=== PATIENT | female | born 1960 | race American Indian/Alaskan Native ===

== ENCOUNTER 2016-07-20 06:44 | Emergency (ER) | payer MEDICARE ==
[2016-07-20 07:21] LABS: Basophils % (Auto) 0.4 % (0.0-1.8); Eosinophils % (Auto) 0.1 % (0.0-4.3); Hematocrit 40.5 % (30.3-42.9); Hemoglobin 12.8 gm/dl (10.1-14.3); Mean Corpuscular HGB Conc 32 % (30-34); Mean Corpuscular Volume 78 fl (79-97); Platelet Count 176 K/mm3 (140-440); Red Blood Count 5.18 M/mm3 (3.65-5.03); Red Cell Distribution Width 15.2 % (13.2-15.2); White Blood Count 5.5 K/mm3 (4.5-11.0)
[2016-07-20 07:54] LABS: Mean Corpuscular Hemoglobin 25 pg (28-32)
[2016-07-20 08:01] LABS: Anion Gap 20 mmol/L; BUN/Creatinine Ratio 16.66; Blood Urea Nitrogen 10 mg/dL (7-17); Calcium 10.9 mg/dL (8.4-10.2); Carbon Dioxide 22 mmol/L (22-30); Chloride 106.9 mmol/L (98-107); Glucose 88 mg/dL (65-100); Potassium 3.7 mmol/L (3.6-5.0); Sodium 145 mmol/L (137-145)
[2016-07-20 08:44] LABS: Urine Drugs of Abuse Note Disclamer
[2016-07-20 08:53] LABS: Bacteria,Urine 1+ /HPF (Negative); Bilirubin,Urine NEG (Negative); Blood,Urine NEG (Negative); Ketones,Urine 20 mg/dL (Negative); Leukocyte Esterase,Urine TR (Negative); Mucus,Urine FEW /HPF; Nitrite,Urine NEG (Negative); Protein,Urine <15 mg/dL mg/dL (Negative); Urobilinogen,Urine < 2.0 mg/dL (<2.0)
--- NOTE | 2016-07-20 11:22 | Emergency Department Report ---
ED Psych HPI - General Chief Complaint: Psych Stated Complaint: BODY PAIN/HIGH BP/MH Time Seen by Provider: 07/20/16 10:46 Source: patient, RN notes reviewed Mode of arrival: Ambulatory Limitations: Altered Mental Status - History of Present Illness Initial Comments: 56-year-old female presents to the emergency department for mental health evaluation. Review of the nursing notes reports that the patient was complaining of generalized body pain. It also notes that the patient was refusing to answer most questions in triage. Prior to being placed in a room, the patient became agitated, requiring the use of security to redirect the patient. Upon being placed in a room, the patient reportedly became catatonic. Patient is refusing to answer questions. MD Complaint: altered mental status -: This morning History of same: Yes Quality: constant Improves With: none Worsens With: none Treatments Prior to Arrival: none - Related Data Home Medications Medication Instructions Recorded Confirmed Last Taken Unobtainable [Unobtainable] 03/01/15 03/01/15 Unknown Allergies Allergy/AdvReac Type Severity Reaction Status Date / Time Penicillins Allergy Unknown Verified 07/20/16 06:58 ED Review of Systems ROS: Stated complaint: BODY PAIN/HIGH BP/MH Other details as noted in HPI Comment: Unobtainable due to pts medical conditions ED Past Medical Hx - Past Medical History Previous Medical History?: Yes Hx Hypertension: Yes Hx Sickle Cell Disease: Yes (sickle cell trait) Hx Psychiatric Treatment: Yes (schizoaffective disorder, bipolar, agressive) Additional medical history: Anemia. hypothyroid. mutism - Surgical History Past Surgical History?: No - Family History Family history: no significant - Social History Smoking Status: Unknown if ever smoked - Medications Home Medications: Home Medications Medication Instructions Recorded Confirmed Last Taken Type Unobtainable [Unobtainable] 03/01/15 03/01/15 Unknown History ED Physical Exam - General Limitations: Physical Limitation General appearance: in no apparent distress - Head Head exam: Present: atraumatic, normocephalic - Eye Eye exam: Present: normal appearance, PERRL, EOMI - ENT ENT exam: Present: normal exam, normal orophraynx, mucous membranes moist - Neck Neck exam: Present: normal inspection, full ROM. Absent: tenderness - Respiratory Respiratory exam: Present: normal lung sounds bilaterally. Absent: respiratory distress - Cardiovascular Cardiovascular Exam: Present: regular rate, normal rhythm, normal heart sounds - GI/Abdominal GI/Abdominal exam: Present: soft, normal bowel sounds. Absent: distended, tenderness - Extremities Exam Extremities exam: Present: normal inspection, full ROM. Absent: tenderness - Back Exam Back exam: Present: normal inspection, full ROM. Absent: tenderness - Neurological Exam Neurological exam: Present: altered (patient opens her eyes to verbal stimuli. When talking to her, patient was looking directly at me in focusing. As questioning continued, the patient changed her focus to the ceiling and then closed her eyes again.) - Psychiatric Psychiatric exam: Present: flat affect - Skin Skin exam: Present: warm, dry, intact ED Course Vital Signs 07/20/16 06:58 Temperature 98.5 F Pulse Rate 80 Respiratory 14 Rate Blood Pressure 154/105 [Right] O2 Sat by Pulse 99 Oximetry ED Medical Decision Making - Lab Data Result diagrams: 07/20/16 07:01 07/20/16 07:01 - Medical Decision Making Form 1013 has been signed and placed on the patient's chart. Patient has been medically cleared and is awaiting mental health evaluation for inpatient placement. - Differential Diagnosis schizoaffective disorder Critical care attestation.: If time is entered above; I have spent that time in minutes in the direct care of this critically ill patient, excluding procedure time. ED Disposition Clinical Impression: Schizoaffective disorder, bipolar type Disposition: DC/TX PSY HOSP/PSY UNIT Is pt being admited?: No Condition: Stable Time of Disposition: 11:34
--- NOTE | 2016-07-20 16:49 | Consultation ---
History of Present Illness - Reason for Consult Consult date: 07/20/16 Reason for consult: Mental Health Evaluation Requesting physician: JOSE STARR - Chief Complaint Chief complaint: Patient will not talk" - History of Present Psychiatric Illness 56-year-old female presents to the emergency department for mental health evaluation. Today patient is calm, but want answer questions when asked. She stared at the ceiling during the evaluation. Before I exited the room, the patient stated, "pack out operator the light." No gestures of SI/HI's and AVH's at this time. Medications and Allergies Allergies Allergy/AdvReac Type Severity Reaction Status Date / Time Penicillins Allergy Unknown Verified 07/20/16 06:58 Home Medications Medication Instructions Recorded Confirmed Last Taken Type Unobtainable [Unobtainable] 03/01/15 03/01/15 Unknown History Past psychiatric history - Past Medical History Past Medical History: anemia, other (Sickle cell) Past Surgical History: Other (Unable to obtain) - past Psychiatric treatment and history psychiatric treatment history: Hx of Schizoaffective per ER note. - Social History Social history: other (unable to obtain) Mental Status Exam - Vital signs Last Vital Signs Temp 98.5 F 07/20/16 06:58 Pulse 80 07/20/16 06:58 Resp 14 07/20/16 06:58 BP 154/105 07/20/16 06:58 Pulse Ox 99 07/20/16 06:58 - Exam Narrative exam: ROS (+) psychosis, (+) disorganized MSE: Appearance: calm, cooperative, disheveled Behavior: good eye contact Speech: regular rate and tone Mood: unable to assess Affect: flat Thought Process: unable to assessl Thought Content: no gestures SI/HI's and AVH's Motor Activity: lying in bed Cognition: unable to asess Insight: unable to assess Judgment: unable to assess Results Result Diagrams: 07/20/16 07:01 07/20/16 07:01 Abnormal lab results 07/20/16 07/20/16 Range/Units 07:01 07:01 RBC 5.18 H (3.65-5.03) M/mm3 MCV 78 L (79-97) fl MCH 25 L (28-32) pg [place] % (Auto) 7.7 H (0.0-7.3) % Lymph # 0.9 L (1.2-5.4) K/mm3 Seg Neutrophils % 75.3 H (40.0-70.0) % Creatinine 0.6 L (0.7-1.2) mg/dL Calcium 10.9 H (8.4-10.2) mg/dL All other labs normal. Assessment and Plan Assessment and plan: Impression: 56-year-old female presents to the emergency department for mental health evaluation. Today patient is calm, but want answer questions when asked. She stared at the ceiling during the evaluation. Before I exited the room, the patient stated, "pack out operator the light." Recommendation/Plan: Continue 1013 with placement to inpatient psy services. Collateral information needed to determine treatment.
[2016-07-21] MEDS ORDERED: TYLENOL PO PRN (14:54)
[2016-07-21] MEDS ORDERED: ALUM-MAG HYDROX-SIMETH 200-200-20MG/5ML PO PRN (14:54)
[2016-07-21] MEDS ORDERED: MILK OF MAGNESIA PO PRN (14:54)
[2016-07-21 15:24] VITALS: BP 150/88
== END 2016-07-21 15:33 ==
LOC: ED 06:44
DX: F25.9 Schizoaffective disorder, unspecified (principal); F31.9 Bipolar disorder, unspecified
CPT/HCPCS: 36415; 80048; 80307; 81001; 85025; 99285; G0480; 80320

== ENCOUNTER 2016-08-12 11:37 | Emergency (ER) | payer MEDICARE ==
[2016-08-12] MEDS ORDERED: GEODON IM ONE (12:56)
[2016-08-12] MEDS ORDERED: WATER FOR INJ (PF) 10 ML ONE (13:15)
[2016-08-12 14:01] LABS: Basophils % (Auto) 0.3 % (0.0-1.8); Eosinophils % (Auto) 0.1 % (0.0-4.3); Hemoglobin 12.5 gm/dl (10.1-14.3); Mean Corpuscular HGB Conc 32 % (30-34); Mean Corpuscular Volume 78 fl (79-97); Platelet Count 167 K/mm3 (140-440); Red Cell Distribution Width 15.1 % (13.2-15.2); White Blood Count 7.6 K/mm3 (4.5-11.0)
[2016-08-12 14:08] LABS: Mean Corpuscular Hemoglobin 25 pg (28-32)
[2016-08-12 14:15] LABS: Anion Gap 16 mmol/L; Blood Urea Nitrogen 9 mg/dL (7-17); Calcium 10.5 mg/dL (8.4-10.2); Carbon Dioxide 22 mmol/L (22-30); Chloride 105.7 mmol/L (98-107); Glucose 82 mg/dL (65-100); Potassium 3.8 mmol/L (3.6-5.0); Sodium 140 mmol/L (137-145)
[2016-08-12] MEDS ORDERED: BENADRYL IM ONE (14:31)
[2016-08-12] MEDS ORDERED: ATIVAN IM ONE (14:31)
[2016-08-12] MEDS ORDERED: ATIVAN ONE (14:32)
--- NOTE | 2016-08-12 14:36 | Emergency Department Report ---
ED Psych HPI - General Chief Complaint: Medical Clearance Stated Complaint: NOT EATING OR TAKING MEDS X 4 DAYS Source: EMS Mode of arrival: Stretcher Limitations: Other - History of Present Illness Initial Comments: 56-year-old female with a past medical history hypertension, schizoaffective disorder, bipolar disorder, mutism, and hypothyroidism presents hospital from personal longterm with complaint of not eating or drinking for the past 4 days. Upon arrival patient is refusing to speak to me in only states "leave me alone". Per triage patient is also refusing to speak or make eye contact and was staring straight ahead. Apparently prior to arrival at the scene patient was also screaming into the abdomen abruptly stopped and stayed still. Accu- Chek 96 prior to arrival. No further history of present illness ago but this time. - Related Data Home Medications Medication Instructions Recorded Confirmed Last Taken Benztropine [Cogentin] 1 mg PO BID 08/12/16 08/12/16 Unknown Levothyroxine [Synthroid] 25 mcg PO QAM 08/12/16 08/12/16 Unknown Lisinopril [Zestril TAB] 30 mg PO QDAY 08/12/16 08/12/16 Unknown Simvastatin [Zocor TAB] 20 mg PO QHS 08/12/16 08/12/16 Unknown Valsartan [Diovan] 160 mg PO QDAY 08/12/16 08/12/16 Unknown amLODIPine [Norvasc] 10 mg PO DAILY 08/12/16 08/12/16 Unknown clonazePAM 0.5 mg PO BID 08/12/16 08/12/16 Unknown diphenhydrAMINE [Benadryl CAP] 50 mg PO QHS 08/12/16 08/12/16 Unknown risperiDONE [RisperiDONE] 3 mg PO BID 08/12/16 08/12/16 Unknown Allergies Allergy/AdvReac Type Severity Reaction Status Date / Time Penicillins Allergy Unknown Verified 07/20/16 06:58 ED Review of Systems ROS: Stated complaint: NOT EATING OR TAKING MEDS X 4 DAYS Other details as noted in HPI Comment: Unobtainable due to pts medical conditions (pt refusing to speak) ED Past Medical Hx - Past Medical History Hx Hypertension: Yes Hx Sickle Cell Disease: Yes (sickle cell trait) Hx Psychiatric Treatment: Yes (schizoaffective disorder, bipolar, agressive) Additional medical history: Anemia. hypothyroid. mutism - Social History Smoking Status: Unknown if ever smoked Substance Use Type: None - Medications Home Medications: Home Medications Medication Instructions Recorded Confirmed Last Taken Type Benztropine [Cogentin] 1 mg PO BID 08/12/16 08/12/16 Unknown History Levothyroxine [Synthroid] 25 mcg PO QAM 08/12/16 08/12/16 Unknown History Lisinopril [Zestril TAB] 30 mg PO QDAY 08/12/16 08/12/16 Unknown History Simvastatin [Zocor TAB] 20 mg PO QHS 08/12/16 08/12/16 Unknown History Valsartan [Diovan] 160 mg PO QDAY 08/12/16 08/12/16 Unknown History amLODIPine [Norvasc] 10 mg PO DAILY 08/12/16 08/12/16 Unknown History clonazePAM 0.5 mg PO BID 08/12/16 08/12/16 Unknown History diphenhydrAMINE [Benadryl CAP] 50 mg PO QHS 08/12/16 08/12/16 Unknown History risperiDONE [RisperiDONE] 3 mg PO BID 08/12/16 08/12/16 Unknown History ED Physical Exam - General Limitations: Other - Other Other exam information: General: No limitations, patient is alert in no acute distress Head exam: Atraumatic, normocephalic Eyes exam: Normal appearance, pupils equal reactive to light, extraocular movements intact ENT: Moist mucous membrane Neck exam: Normal inspection, full range of motion, no meningismus nontender Respiratory exam: Clear to auscultation bilateral, no wheezes, rales, crackles Cardiovascular: Normal rate and rhythm Abdomen: Soft, nondistended, and nontender, with normal bowel sounds, no rebound, or guarding Extremity: Full range of motion normal inspection no deformity Back: Normal Inspection, full range of motion, no tenderness Neurologic: Patient alert and refusing to speak or follow commands. Patient states "leave me alone". 5/5 upper and lower extremity strength no facial droop , speech clear, when she decided to speak. Psychiatric: Poor eye contact Skin: Warm, dry, intactysical exam ED Course Vital Signs 08/12/16 08/12/16 08/12/16 11:47 11:50 11:54 Temperature 98.3 F Pulse Rate 87 110 H Respiratory 12 16 Rate Blood Pressure 160/98 Blood Pressure 158/96 [Right] O2 Sat by Pulse 98 98 97 Oximetry 08/12/16 08/12/16 08/12/16 12:00 12:10 12:20 Temperature Pulse Rate 77 78 74 Respiratory 11 L 11 L 12 Rate Blood Pressure 151/94 151/94 151/94 Blood Pressure [Right] O2 Sat by Pulse 94 97 97 Oximetry 08/12/16 08/12/16 08/12/16 12:30 12:40 19:14 Temperature Pulse Rate 73 74 Respiratory 15 12 20 Rate Blood Pressure 146/98 146/98 Blood Pressure [Right] O2 Sat by Pulse 95 97 Oximetry 08/12/16 08/13/16 08/13/16 21:23 08:19 08:20 Temperature 98.5 F 98.9 F Pulse Rate 92 H 79 Respiratory 20 16 16 Rate Blood Pressure Blood Pressure 149/86 165/83 [Right] O2 Sat by Pulse 98 97 97 Oximetry 08/13/16 08/14/16 20:11 02:05 Temperature 98 F 98 F Pulse Rate 88 89 Respiratory 18 20 Rate Blood Pressure Blood Pressure 132/75 143/88 [Right] O2 Sat by Pulse 98 100 Oximetry - Reevaluation(s) Reevaluation #1: 08/12/16 14:32 Patient received 20 mg IM Geodon to do was sleep. Patient this am he jumped out of bed or into the hallway her. She was yelling for the doctor. While escorting the patient back to the bed pt fell out onto the floor. No head injury. Then pt jumped back up and attempted to run away. Pt was then transferred to the padded room and [facility]. - Consultations Consultation #1: 08/12/16 14:45 Mental health consult requested ED Medical Decision Making - Lab Data Result diagrams: 08/12/16 13:53 08/12/16 13:53 Lab Results 08/12/16 08/12/16 08/12/16 Range/Units 13:53 13:53 13:53 WBC 7.6 (4.5-11.0) K/mm3 RBC 5.00 (3.65-5.03) M/mm3 Hgb 12.5 (10.1-14.3) gm/dl Hct 39.0 (30.3-42.9) % MCV 78 L (79-97) fl MCH 25 L (28-32) pg MCHC 32 (30-34) % RDW 15.1 (13.2-15.2) % Plt Count 167 (140-440) K/mm3 Lymph % (Auto) 10.3 L (13.4-35.0) % [place] % (Auto) 7.5 H (0.0-7.3) % Eos % (Auto) 0.1 (0.0-4.3) % Baso % (Auto) 0.3 (0.0-1.8) % Lymph # 0.8 L (1.2-5.4) K/mm3 [place] # 0.6 (0.0-0.8) K/mm3 Eos # 0.0 (0.0-0.4) K/mm3 Baso # 0.0 (0.0-0.1) K/mm3 Seg Neutrophils % 81.8 H (40.0-70.0) % Seg Neutrophils # 6.2 (1.8-7.7) K/mm3 Sodium 140 (137-145) mmol/L Potassium 3.8 (3.6-5.0) mmol/L Chloride 105.7 (98-107) mmol/L Carbon Dioxide 22 (22-30) mmol/L Anion Gap 16 mmol/L BUN 9 (7-17) mg/dL Creatinine 0.6 L (0.7-1.2) mg/dL Estimated GFR > 60 ml/min BUN/Creatinine Ratio 15.00 % Glucose 82 (65-100) mg/dL Calcium 10.5 H (8.4-10.2) mg/dL Urine Color (Yellow) Urine Turbidity (Clear) Urine pH (5.0-7.0) Ur Specific [place] (1.003-1.030) Urine Protein (Negative) mg/dL Urine Glucose (UA) (Negative) mg/dL Urine Ketones (Negative) mg/dL Urine Blood (Negative) Urine Nitrite (Negative) Urine Bilirubin (Negative) Urine Urobilinogen (<2.0) mg/dL Ur Leukocyte Esterase (Negative) Urine WBC (Auto) (0.0-6.0) /HPF Urine RBC (Auto) (0.0-6.0) /HPF U Epithel Cells (Auto) (0-13.0) /HPF Urine Mucus /HPF Urine Opiates Screen Urine Methadone Screen Ur Barbiturates Screen Ur Phencyclidine Scrn Ur Amphetamines Screen U Benzodiazepines Scrn Urine Cocaine Screen U Marijuana (THC) Screen Drugs of Abuse Note Plasma/Serum Alcohol < 0.01 (0-0.07) gm% 08/12/16 08/12/16 Range/Units 17:36 17:36 WBC (4.5-11.0) K/mm3 RBC (3.65-5.03) M/mm3 Hgb (10.1-14.3) gm/dl Hct (30.3-42.9) % MCV (79-97) fl MCH (28-32) pg MCHC (30-34) % RDW (13.2-15.2) % Plt Count (140-440) K/mm3 Lymph % (Auto) (13.4-35.0) % [place] % (Auto) (0.0-7.3) % Eos % (Auto) (0.0-4.3) % Baso % (Auto) (0.0-1.8) % Lymph # (1.2-5.4) K/mm3 [place] # (0.0-0.8) K/mm3 Eos # (0.0-0.4) K/mm3 Baso # (0.0-0.1) K/mm3 Seg Neutrophils % (40.0-70.0) % Seg Neutrophils # (1.8-7.7) K/mm3 Sodium (137-145) mmol/L Potassium (3.6-5.0) mmol/L Chloride (98-107) mmol/L Carbon Dioxide (22-30) mmol/L Anion Gap mmol/L BUN (7-17) mg/dL Creatinine (0.7-1.2) mg/dL Estimated GFR ml/min BUN/Creatinine Ratio % Glucose (65-100) mg/dL Calcium (8.4-10.2) mg/dL Urine Color Yellow (Yellow) Urine Turbidity Clear (Clear) Urine pH 5.0 (5.0-7.0) Ur Specific Artie 1.011 (1.003-1.030) Urine Protein <15 mg/dl (Negative) mg/dL Urine Glucose (UA) Neg (Negative) mg/dL Urine Ketones Neg (Negative) mg/dL Urine Blood Sm (Negative) Urine Nitrite Neg (Negative) Urine Bilirubin Neg (Negative) Urine Urobilinogen < 2.0 (<2.0) mg/dL Ur Leukocyte Esterase Tr (Negative) Urine WBC (Auto) < 1.0 (0.0-6.0) /HPF Urine RBC (Auto) 6.0 (0.0-6.0) /HPF U Epithel Cells (Auto) 6.0 (0-13.0) /HPF Urine Mucus Few /HPF Urine Opiates Screen Presumptive negative Urine Methadone Screen Presumptive negative Ur Barbiturates Screen Presumptive negative Ur Phencyclidine Scrn Presumptive negative Ur Amphetamines Screen Presumptive negative U Benzodiazepines Scrn Presumptive negative Urine Cocaine Screen Presumptive negative U Marijuana (THC) Screen Presumptive negative Drugs of Abuse Note Disclamer Plasma/Serum Alcohol (0-0.07) gm% - Medical Decision Making Labs do not reveal any signs of dehydration or significant anemia or leukocytosis. Awaiting urine collection was patient is sedated enough. Mental health has been consulted for evaluation. 1013 and transfer form signed for inpatient treatment - Differential Diagnosis psychosis, bipolar, mutism, dehydration Critical Care Time: No Critical care attestation.: If time is entered above; I have spent that time in minutes in the direct care of this critically ill patient, excluding procedure time. ED Disposition Clinical Impression: Mutism, Bipolar disorder, Schizoaffective disorder, Medical clearance for psychiatric admission Disposition: [id number]/TX-65 PSY HOSP/PSY UNIT Is pt being admited?: No Condition: Stable Time of Disposition: 15:18
--- NOTE | 2016-08-12 17:11 | Consultation ---
History of Present Illness - Reason for Consult Consult date: 08/12/16 Reason for consult: Mental Health Evaluation Requesting physician: NEMO BA - Chief Complaint Chief complaint: "Patient will not speak" - History of Present Psychiatric Illness 56-year-old female with a past medical history hypertension, schizoaffective disorder, bipolar disorder, mutism, and hypothyroidism presents hospital from personal [facility] with complaint of not eating or drinking for the past 4 days. Today patient would not answer questions. She was lying on the floor during the assessment. Per the staff, patient had to be given prn medication for physical agitation and aggression. No gestures of SI/HI's and AVH's. Medications and Allergies Allergies Allergy/AdvReac Type Severity Reaction Status Date / Time Penicillins Allergy Unknown Verified 07/20/16 06:58 Home Medications Medication Instructions Recorded Confirmed Last Taken Type Unobtainable [Unobtainable] 03/01/15 03/01/15 Unknown History Past psychiatric history - Past Medical History Past Medical History: hypothyroidism, other (sickle cell) Past Surgical History: Other (unable to obtain) - past Psychiatric treatment and history psychiatric treatment history: Unable to obtain psy or fam psy hx. - Social History Social history: other (unable to obtain) Mental Status Exam - Vital signs Last Vital Signs Temp 98.3 F 08/12/16 11:54 Pulse 74 08/12/16 12:40 Resp 12 08/12/16 12:40 BP 146/98 08/12/16 12:40 Pulse Ox 95 08/12/16 12:30 - Exam Narrative exam: ROS (+) possibly psychosis MSE: Appearance: uncooperative Behavior: erratic Speech: unable to assess Mood: unable to assess Affect: congruent to mood Thought Process: unable to assess Thought Content: no gestures of SI/HI's and AVH's Motor Activity: lying on floor Cognition: a/ox 3 Insight: unable to assess Judgment: unable to assess Results Result Diagrams: 08/12/16 13:53 08/12/16 13:53 Abnormal lab results 08/12/16 08/12/16 Range/Units 13:53 13:53 MCV 78 L (79-97) fl MCH 25 L (28-32) pg Lymph % (Auto) 10.3 L (13.4-35.0) % [place] % (Auto) 7.5 H (0.0-7.3) % Lymph # 0.8 L (1.2-5.4) K/mm3 Seg Neutrophils % 81.8 H (40.0-70.0) % Creatinine 0.6 L (0.7-1.2) mg/dL Calcium 10.5 H (8.4-10.2) mg/dL All other labs normal. Assessment and Plan Assessment and plan: Impression: Hx of Schizoaffective DO. Today patient would not answer questions. She was lying on the floor during the assessment. Per the staff patient had to be given prn medication for physical agitation and aggression. DD: Schizophrenia Recommendation/Plan: Continue 1013 with placement to inpatient psy services. Gather collateral to help determine medication regimen.
[2016-08-12 17:47] LABS: Urine Drugs of Abuse Note Disclamer
[2016-08-12 17:57] LABS: Bilirubin,Urine NEG (Negative); Blood,Urine SM (Negative); Ketones,Urine NEG (Negative); Leukocyte Esterase,Urine TR (Negative); Mucus,Urine FEW /HPF; Nitrite,Urine NEG (Negative); Protein,Urine <15 mg/dL mg/dL (Negative); Urobilinogen,Urine < 2.0 mg/dL (<2.0); WBC,Urine < 1.0 /HPF (0.0-6.0)
--- NOTE | 2016-08-13 10:58 | Progress Note ---
Subjective - Reason for Consult Consult date: 08/13/16 Reason for consult: Psychiatry Follow-up - Chief Complaint Chief complaint: "Hello" 56-year-old female with a past medical history hypertension, schizoaffective disorder, bipolar disorder, mutism, and hypothyroidism presents hospital from personal custodial with complaint of not eating or drinking for the past 4 days. Today patient is calm and cooperative with a tangential thought process. She spoke more today than yesterday. She stated that she live in a custodial. She stated that she takes Risperdal and Cogentin. She could not tell me when she last took her medications. She denies SI/HI's and VH's. She stated that she hear some "crazy voices." Patient did eat her breakfast this morning. Mental Status Exam - Vital signs Last Vital Signs Temp 98.9 F 08/13/16 08:19 Pulse 79 08/13/16 08:19 Resp 16 08/13/16 08:20 BP 165/83 08/13/16 08:19 Pulse Ox 97 08/13/16 08:20 - Exam Narrative exam: MSE: Appearance: calm, cooperative Behavior: good eye contact Speech: regular rate and tone Mood: "okay" Affect: congruent to mood Thought Process: tangential Thought Content: no gestures of SI/HI's and VH's Motor Activity: lying on floor Cognition: a/ox 3 Insight: limited Judgment: limited Assessment and Plan Impression: Hx of Schizoaffective DO. 56-year-old female with a past medical history hypertension, schizoaffective disorder, bipolar disorder, mutism, and hypothyroidism presents hospital from personal custodial with complaint of not eating or drinking for the past 4 days. Today patient is calm and cooperative with a tangential thought process. She spoke more today than yesterday. She denies SI/HI's and VH's. Recommendation/Plan: Continue 1013 with placement to inpatient psy services. Start Risperdal 1 mg PO HS for psychosis and Cogentin 0.5 mg PO HS for EPS prevention. Discussed possible metabolic side effects with patient reference Risperdal.
[2016-08-13] MEDS ORDERED: RisperDAL PO SCH (22:00)
[2016-08-13] MEDS ORDERED: COGENTIN PO SCH (22:00)
[2016-08-14 02:06] VITALS: BP 143/88
== END 2016-08-14 02:07 ==
LOC: EEVIPCON 11:37 → ED 11:37
DX: R47.01 Aphasia (principal); F31.9 Bipolar disorder, unspecified; F20.9 Schizophrenia, unspecified; I10 Essential (primary) hypertension; D57.3 Sickle-cell trait; D64.9 Anemia, unspecified; E03.9 Hypothyroidism, unspecified; Z88.0 Allergy status to penicillin
CPT/HCPCS: 36415; 80048; 80307; 81001; 85025; 96372; 99285; G0480; J1200; J2060; J3486; 80320